=== PATIENT | female | born 1965 | race Two or more races ===

== ENCOUNTER → 2024-04-16 | Outpatient (CLI) | payer MEDICAID, SELFPAY ==
--- NOTE | 2024-04-16 10:30 | XR_ITS ---
Examination: Screening digital mammography, bilateral Computer aided detection 3-D breast Tomosynthesis, bilateral Date and time of exam: April 16, 2024 at 10:11 AM Compared to mammograms dating to 12/29/2015 Indication: Screening Technique: Nonmagnified MLO, CC views of the breasts to been obtained, reconstructed from 3-D Tomosynthesis images. R2 computer aided detection program utilized for evaluation of suspicious masses and/or abnormal calcifications. 3-D Tomosynthesis images obtained. Findings: Scattered areas of fibroglandular density. 20 mm round focal asymmetry outer left breast CC view, posterior depth, 6.8 cm from the nipple 6 mm focal asymmetry upper right breast MLO view, 4.0 cm from the nipple Impression: BI-RADS Category 0: Incomplete: Need additional imaging evaluation 20 mm focal asymmetry outer left breast CC view, posterior depth, 6.8 cm from the nipple, recommend follow-up spot tomographic views upper outer quadrant left breast posterior depth 6 mm focal asymmetry upper right breast MLO view, 4.0 cm from the nipple, recommend follow-up spot tomographic views upper outer quadrant right breast posterior depth Recommend bilateral breast sonography follow-up to complete the workup
== END | disposition home or self-care (01) ==
PROVIDERS: PCP Nurse Practitioner Family; Referring Provider Nurse Practitioner Family; Visit Provider Nurse Practitioner Family
DX: Z12.31 Encounter for screening mammogram for malignant neoplasm of breast (principal); R92.8 Other abnormal and inconclusive findings on diagnostic imaging of breast; N64.89 Other specified disorders of breast
CPT/HCPCS: 77063; 77067

== ENCOUNTER → 2024-05-29 | Outpatient (CLI) | payer MEDICAID, SELFPAY ==
--- NOTE | 2024-05-29 10:30 | XR_ITS ---
Examination: Breast ultrasound complete, bilateral Date and time of exam: May 29, 2024 1021 hours INDICATIONS: Mammogram April 16, 2024 20 mm focal asymmetry outer left breast CC view 6.8 cm from the nipple, 6 mm focal asymmetry upper right breast MLO view, 4.0 cm from the nipple Technique: Real-time grayscale ultrasonographic imaging bilateral breasts, including all 4 quadrants as well as nipple retroareolar and axillary regions. Findings: Sonographic images right breast 2:00 cyst 4 x 3 mm 9:00 cyst 4 x 3 mm No solid nodules Sonographic images left breast 5:00 cyst 7 x 4 mm 10:00 cyst 6 x 4 mm 11:00 oval mass circumscribed lobular margins 4 x 3 mm IMPRESSION: BI-RADS Category 2: Benign findings
--- NOTE | 2024-05-29 11:30 | XR_ITS ---
Examination: Diagnostic digital mammography, bilateral Computer aided detection 3-D breast Tomosynthesis, bilateral Date and time of exam: May 29, 2024 1015 hours INDICATIONS: Mammogram April 16, 2024 20 mm focal asymmetry outer left breast CC view 6 mm focal asymmetry upper right breast MLO view Technique: Nonmagnified MLO, CC views of the breasts to been obtained, reconstructed from 3-D Tomosynthesis images. R2 computer aided detection program utilized for evaluation of suspicious masses and/or abnormal calcifications. 3-D Tomosynthesis images obtained. Findings: Scattered areas of fibroglandular density No suspicious masses depicted Probably benign 3 mm nodule upper left breast on the spot compression view Impression: BI-RADS Category 3: Probably benign findings One additional 6 month left mammogram follow-up is needed.
== END | disposition home or self-care (01) ==
LOC: CDIM 10:10
PROVIDERS: Referring Provider Nurse Practitioner Family; Visit Provider Nurse Practitioner Family
DX: R92.333 Mammographic heterogeneous density, bilateral breasts (principal); N60.01 Solitary cyst of right breast; N60.02 Solitary cyst of left breast
CPT/HCPCS: 76641; 77062; 77066; G0279